=== PATIENT | male | born 1955 | race Caucasian/White ===

== ENCOUNTER 2022-05-24 10:24 | Emergency (ER) | payer BC ==
[~2022-05-24] VITALS: Ht 180.3 cm; Wt 101.2 kg
[~2022-05-24 10:24] MED LIST: LISINOPRIL; STATIN
[2022-05-24 11:17] VITALS: BP_SYST 174
[2022-05-24] MEDS ORDERED: PROPOFOL 200MG/ 20ML VIAL (DIPRIVAN) IV ONE (11:30)
[2022-05-24] MEDS ORDERED: NAPR-690 PO (12:23)
[2022-05-24 12:36] VITALS: BP_SYST 148
== END 2022-05-24 12:36 | disposition home or self-care (01) ==
LOC: SED 10:24
DX: S43.015A Anterior dislocation of left humerus, initial encounter (principal); I10 Essential (primary) hypertension; Z88.0 Allergy status to penicillin; Z88.8 Allergy status to other drugs, medicaments and biological substances; Z79.899 Other long term (current) drug therapy; W18.30XA Fall on same level, unspecified, initial encounter; Y93.89 Activity, other specified; Y92.89 Other specified places as the place of occurrence of the external cause; Y99.8 Other external cause status
CPT/HCPCS: 99285; 23650; 73030; 99152; J2704